=== PATIENT | female | born 1965 | race Two or more races ===

== ENCOUNTER 2018-01-03 11:46 | Outpatient (CLI) | payer OTHER | END 2018-01-03 11:56 | disposition home or self-care (01) | LOC: MAMO-SONO 11:46 | DX: N60.11 Diffuse cystic mastopathy of right breast (principal); Z12.31 Encounter for screening mammogram for malignant neoplasm of breast ==

== ENCOUNTER 2020-01-19 14:48 | Outpatient (CLI) | payer OTHER | END 2020-01-19 15:00 | disposition home or self-care (01) | LOC: MAMO-SONO 14:48 | PROVIDERS: ATTEND Obstetrics & Gynecology | DX: N60.11 Diffuse cystic mastopathy of right breast (principal); Z12.31 Encounter for screening mammogram for malignant neoplasm of breast ==

== ENCOUNTER 2021-03-03 10:05 | Outpatient (CLI) | payer OTHER | END 2021-03-03 10:12 | disposition home or self-care (01) | LOC: MAMO-SONO 10:05 | PROVIDERS: ATTEND Obstetrics & Gynecology | DX: N60.11 Diffuse cystic mastopathy of right breast (principal) ==

== ENCOUNTER 2022-11-22 12:41 | Outpatient (CLI) | payer OTHER | END 2022-11-22 12:55 | disposition home or self-care (01) | LOC: MAMO-SONO 12:41 | PROVIDERS: ATTEND Obstetrics & Gynecology | DX: N60.11 Diffuse cystic mastopathy of right breast (principal) ==

== ENCOUNTER 2024-01-04 09:23 | Outpatient (CLI) | payer OTHER | END 2024-01-04 09:34 | disposition home or self-care (01) | LOC: MAMO-SONO 09:23 | PROVIDERS: ATTEND Obstetrics & Gynecology | DX: N60.11 Diffuse cystic mastopathy of right breast (principal) ==

== ENCOUNTER 2025-02-20 10:20 | Outpatient (CLI) | payer OTHER | END 2025-02-20 10:28 | disposition home or self-care (01) | LOC: MAMO-SONO 10:20 | PROVIDERS: ATTEND Obstetrics & Gynecology | DX: N60.11 Diffuse cystic mastopathy of right breast (principal) ==